=== PATIENT | female | born 2000 | race Caucasian/White ===

== ENCOUNTER 2022-10-10 11:04 | Outpatient (CLI) | payer MEDICAID, SELFPAY ==
--- NOTE | 2022-10-10 11:09 | MM_ITS ---
WS: [id number] SCREENING DIGITAL TOMOSYNTHESIS MAMMOGRAM WITH CAD HISTORY: SCREENING COMPARISON: None available. Bilateral CC and MLO with tomosynthesis views submitted. Synthetic mammography reviewed. Computer aid ed detection analyzed. Breast composition: There are scattered areas of fibroglandular density. No suspicious masses, microc alcifications or architectural distortion. MM/[place] [id number] IMPRESSION: BI-RADS: 1-Negative FOLLOW UP: 1 Year Follow-up
== END 2022-10-10 11:05 | disposition home or self-care (01) ==
PROVIDERS: PCP Family Medicine; Visit Provider Family Medicine
DX: Z12.31 Encounter for screening mammogram for malignant neoplasm of breast (principal)
CPT/HCPCS: 77063; 77067

== ENCOUNTER 2023-01-07 16:03 | Inpatient (IN) | payer MEDICAID, SELFPAY ==
[2023-01-07 16:04] VITALS: BP 183/102; PULSE 102; TEMP 37.2; O2SAT 96; BMI 37.5
--- NOTE | 2023-01-07 16:14 | ED.C_ITS ---
HPI - Psych General: Chief Complaint: Psychiatric Symptoms Stated Complaint: PSYCH EVAL Time Seen by Provider: 01/07/23 16:05 Source: patient Mode of arrival: ambulatory Limitations: no limitations History of Present Illness: 22-year-old female who is here with EMS. She has a history of bipolar she has not taken her meds since May family called police because patient's been extremely paranoid she thinks that someone is coming into her house and taking items and replacing with other items. She also thinks that people mid-peaking in her windows. Patient is extremely paranoid here with pressured speech and appears manic. Associated symptoms: Reports delusions and depression Review of Systems Const: Denies: fever(s), chills, body aches or change in appetite ENMT: Denies: throat pain or dental pain Card: Denies: chest pain Resp: Denies: dyspnea GI: Denies: abdominal pain, nausea, vomiting or diarrhea Musc: Denies: neck pain or back pain Skin/Breast: Denies: rash Psych: Reports: depression, sleeping less, irritability and paranoia Physical Exam Const: COMMON NORMALS: patient oriented x3 and healthy appearing GENERAL APPEARANCE: anxious HENMT: COMMON NORMALS: normocephalic and atraumatic HEAD & SCALP: normocephalic and atraumatic Eye: COMMON NORMALS: Equal, round and reactive pupils present and EOMs intact bilaterally PUPIL: Yes Equal, round and reactive pupils present Neck/C-Spine: COMMON NORMALS: full ROM and supple Chest: COMMONS NORMALS: normal inspection of the chest and normal palpation of entire chest wall Resp: COMMON NORMALS: normal respiratory effort, No retractions, No use of accessory muscles and clear to auscultation bilaterally AUSCULTATION: clear to auscultation bilaterally Cardio: COMMON NORMALS: regular rate, regular rhythm and No murmurs present (Cardio) RATE: regular rate RHYTHM: regular rhythm GI: COMMON NORMALS: Normal to inspection, nondistended, normoactive bowel sounds present, Soft to palpation, non-tender and no masses PALPATION: Yes Soft to palpation Extremity: COMMON NORMALS: normal to inspection and full ROM Neuro: COMMON NORMALS: patient oriented x3, moves all extremities and no focal motor deficits Psych: COMMON NORMALS: mental status grossly normal and cooperative; negative for Normal thought process present SPEECH: Yes excessive THOUGHT PROCESS: abnormal THOUGHT CONTENT: Yes delusions and Yes Hallucination(s) present Skin: COMMON NORMALS: no rashes or lesions noted and no wounds GENERAL SKIN EXAM: no rashes or lesions noted Course Vital Signs: Vital signs: Vital Signs Temperature 98.9 F 01/07/23 16:04 Pulse Rate 102 H 01/07/23 16:04 Blood Pressure 183/102 01/07/23 16:04 Pulse Oximetry 96 01/07/23 16:04 Oxygen Delivery Me thod Room Air 01/07/23 16:04 MDM - Psych Medical Decision Making Patient presents here with acute psychosis along with fransisco she is extremely paranoid here she is not safe on her own she is placed on a 96-hour hold I spoke to psychiatry she is medically cleared will admit at this time. Medical Records I reviewed the patient's medical records. Lab Data I reviewed the patient's lab results. 01/07/23 16:44 01/07/23 16:44 Laboratory Results WBC 6.84 10^3/uL (3.29-11.43) 01/07/23 16:44 RBC 5.48 10^6/uL (3.85-5.65) 01/07/23 16:44 Hgb 15.80 g/dL (11.27-16.99) 01/07/23 16:44 Hct 46.4 % (36-47) 01/07/23 16:44 MCV 84.7 fl (85-98) L 01/07/23 16:44 MCH 28.8 pg (27-33) 01/07/23 16:44 MCHC 34.1 g/dL (30-55) 01/07/23 16:44 RDW 12.4 % (12.1-15.1) 01/07/23 16:44 Plt Count 225 10^3/cmm (157-399) 01/07/23 16:44 MPV 11.3 fL (7.4-10.4) H 01/07/23 16:44 Neut % (Auto) 66.3 % 01/07/23 16:44 Lymph % (Auto) 21.6 % 01/07/23 16:44 Stevens % (Auto) 11.3 % 01/07/23 16:44 Eos % (Auto) 0.0 % 01/07/23 16:44 Baso % (Auto) 0.7 % 01/07/23 16:44 Neut # (Auto) 4.53 10^3/uL (1.8-7.7) 01/07/23 16:44 Lymph # (Auto) 1.5 10^3/uL (0.8-4.8) 01/07/23 16:44 Stevens # (Auto) 0.8 10^3/uL (0.2-0.9) 01/07/23 16:44 Eos # (Auto) 0.0 10^3/uL (0.0-0.8) 01/07/23 16:44 Baso # (Auto) 0.1 10^3/uL (0.0-0.1) 01/07/23 16:44 Nucleated RBC % (auto) 0 % 01/07/23 16:44 Nucleated RBCs # 0.0 /100WBC 01/07/23 16:44 No radiology studies performed this visit Discharge Plan Discharge Condition: Stable Referrals: Rell Ferrari MD [Primary Care Provider] - Coding Level of Care Code ED Painter Helper Spray for Guanako Blackburn
[2023-01-07 16:25] VITALS: BP 154/89
[2023-01-07 17:00] LABS: Basophils # 0.1 10^3/uL (0.0-0.1); Basophils % 0.7 %; Hematocrit 46.4 % (36-47); Lymphocytes # 1.5 10^3/uL (0.8-4.8); Lymphocytes % 21.6 %; Mean Corpuscular HGB Conc 34.1 g/dL (30-55); Mean Corpuscular Hemoglobin 28.8 pg (27-33); Mean Corpuscular Volume 84.7 fl (85-98); Mean Platelet Volume 11.3 fL (7.4-10.4); Monocytes # 0.8 10^3/uL (0.2-0.9); Monocytes % 11.3 %; Neutrophils # 4.53 10^3/uL (1.8-7.7); Neutrophils % 66.3 %; Nucleated Red Blood Cells % 0 %; Platelet Count 225 10^3/cmm (157-399); Red Blood Count 5.48 10^6/uL (3.85-5.65); Red Cell Distribution Width 12.4 % (12.1-15.1); White Blood Count 6.84 10^3/uL (3.29-11.43)
[2023-01-07 17:12] LABS: HCG, Serum Qual Negative (Negative)
[2023-01-07 17:13] LABS: Acetaminophen 9.6 ug/mL (10-30); Alanine Aminotransferase 14 U/L (0-33); Albumin Level 4.2 g/dL (3.5-5.2); Alkaline Phosphatase 87 U/L (35-105); Anion Gap 17.3 (5-19); Aspartate Amino Transferase 18 U/L (0-32); Blood Urea Nitrogen 5 mg/dL (6-20); Calcium 8.9 mg/dL (8.5-10.5); Carbon Dioxide 22 mmol/L (22-29); Chloride 106 mmol/L (98-107); Globulin 3.2 g/dL (1.3-4.6); Glomerular Filtration Rate 122.8 mL/min (90-130); Glucose 110 mg/dL (65-115); Osmolality Calculated 292 mOsm/kg (285-295); Potassium 3.3 mmol/L (3.5-5.1); Sodium 142 mmol/L (136-145); Total Bilirubin 0.3 mg/dL (0.15-1.2); Total Protein 7.4 g/dL (6.6-8.7)
[2023-01-07 17:16] LABS: Alcohol Level < 10 mg/dL (0-10); Salicylate < 0.3 mg/dL (3-10)
[2023-01-07 17:17] LABS: Amphetamines Screen Urine Negative (Negative); Barbiturates Screen Urine Negative (Negative); Benzodiazepines Screen Urine Negative (Negative); Cocaine Screen Urine Negative (Negative); Opiate Screen Urine Negative (Negative); PCP Screen Urine Negative (Negative); THC Screen Urine Negative (Negative)
[2023-01-07 18:00] VITALS: BP 153/97; PULSE 90; RESP 17; TEMP 37.2; O2SAT 99
[2023-01-07] MEDS: acetaminophen 325 mg Tablet 650 MG PO (19:44)
[2023-01-07 20:09] VITALS: BP 164/103; PULSE 91; RESP 12; TEMP 37.7; O2SAT 97
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
[2023-01-08 06:00] VITALS: BP 156/94; PULSE 102; RESP 20; TEMP 36.6; O2SAT 98
--- NOTE | 2023-01-08 07:28 | PC.NURSE ---
During morning assessment, patient denied all. Patient stated that she has not had a BM in a few days because she hasn't eaten in a few days. She stated that she hasn't eated in three days because she has been too stressed to do so. Patient also said that she hasn't slept in three days. Patient staring out of the [place] doors during assessment, stated that she saw a little baby over there and that made her sad.
--- NOTE | 2023-01-08 08:50 | PC.NURSE ---
When pt was given acetaminophen at 0843 that she requested for a headache. pt only took one 325mg tablet and refused to take the other. this nurse educated pt that the dose ordered is 2 tablets and pt stated thank you. and walked away.
[2023-01-08] MEDS: acetaminophen 325 mg Tablet PO (08:57)
--- NOTE | 2023-01-08 09:43 | PC.OT ---
Order received to evaluate for OT groups. Per nursing, patient is not appropriate for an evaluation at this time.
--- NOTE | 2023-01-08 12:32 | PC.NURSE ---
Patient at window, patient states that she wants to be discharged because she doesn't feel safe here. This nurse asked patient if it was something we are doing that makes her feel unsafe. Patient said yes, but refused to go into detail. Patient started crying, asked for a cup of water. Patient at window, tearful. Patient refusing medication.
[2023-01-08 13:02] VITALS: BP 151/100; PULSE 105; RESP 18; TEMP 36.4; O2SAT 97
--- NOTE | 2023-01-08 13:36 | P.NPUHP_ITS ---
Providers/Chief Complaint Admitting Physician: Migue Brady MD Primary Care Provider: Rell Ferrari MD Chief Complaint: PSYCH EVAL HPI NPU History of Present Illness Shawna Godfrey is a 22 year old [facility]: Chief Complaint: Psychiatric Symptoms Stated Complaint: PSYCH EVAL Time Seen by Provider: 01/07/23 16:05 Source: patient Mode of arrival: ambulatory Limitations: no limitations History of Present Illness: 22-year-old female who is here with EMS. She has a history of bipolar she has not taken her meds since May family called police because patient's been extremely paranoid she thinks that someone is coming into her house and taking items and replacing with other items. She also thinks that people mid-peaking in her windows. Patient is extremely paranoid here with pressured speech and appears manic. Associated symptoms: Reports delusions and depression. She was admitted to the neuropsychiatric unit for definitive treatment of those issues. She presented today quite distraught. I offered to take her out on the patio for privacy and that led to almost panic as she was not willing to walk out the door. She asked why I was trying to get her on the helicopter and when I asked what was meant by that she was frustrated that I was denying that there was a helicopter. I explained to her that certainly helicopters come to and from the hospital on a regular basis but there were no helicopters in the near facility but she was not hearing that. She was very upset as she argued that she had not had vitals in the last 2 hours and needed to be taken down to the emergency department but could not articulate what the actual issue was. She said that she has a fever and her blood pressure is elevated which is not true and she had just had vitals in the last couple hours which she argued against. Her mother had come for visitation and she refused to see her mother but after our interaction she seemed like she might give her mother an option to see her. We discussed the risks, benefits and alternatives of exploring an antipsychotic and she appeared to understand but would not agree to either discussed medication she had been on or considering a medication today. We discussed the fact she is on a 96-hour hold and hoping we can work together to initiate medication to avoid that hold needing to be extended given her request to get out of here. She would not provide any additional information and we discussed us reaching out to the family to get collateral information. Meds NPU Home Medications Medication Instructions Recorded Confirmed Last Taken Type No Known Home Medications 01/07/23 01/07/23 Unknown History Allergies Allergy/AdvReac Type Severity Reaction Status Date / Time No Known Allergies Allergy Verified 01/07/23 20:23 Mental Status Exam MSE Comments: This is an obese versus morbidly obese white female in hospital scrubs with limited grooming and eye contact. No abnormal movements except for psychomotor agitation. Mostly uncooperative with exam and moderate distress. Speech was slightly increased rate and volume. Mood not described, affect anxious. Thought process linear at times but at times disorganized and greatly influenced by her hallucinations. Thought content: Patient did not report any suicidal or homicidal ideation but did not answer the question, there were no delusions reported but clear paranoid and persecutory delusions noted, she did not report any auditory or visual hallucinations but was clearly attending to internal stimuli and projecting that into the environment. Attention and concentration were impaired and memory was unreliable but none were formally tested. She is alert and oriented times person and place. Insight, judgment and impulse control are impaired. Vitals/I&O/Wt Last Vital Signs Temp 97.6 F 01/08/23 13:02 Pulse 105 H 01/08/23 13:02 Resp 18 01/08/23 13:02 BP 151/100 01/08/23 13:02 Pulse Ox 97 01/08/23 13:02 O2 Del Method Room Air 01/07/23 20:09 Weight last 48 hrs Weight 108.862 kg Data NPU 01/07/23 16:44 01/07/23 16:44 A&P Assessment and plan (1) Psychosis: (2) Hallucinations: (3) History of bipolar disorder: Plan This is a 22-year-old white female with some previous mental health history repo rted including possible bipolar disorder but presenting frankly psychotic with a negative UDS. 1. Lateral information to identify if there is any previous antipsychotic ex posure. 2. Get collateral information given patient very poor historian. 3. Consider Abilify versus Invega given ability to go to a long-acting injectable 4. Encourage individual, group, and milieu therapy. 5. Continue q-15-minute checks for safety. 6. Recommend sober living treatment at the highest level of care to which the patient is willing to commit as we explore whether there is any occult drug use.. Involuntary Hold Information 96 Hour Hold: 96 Hour Involuntary Admission: Yes 96 Hour Hold Ending Date: 01/12/23 96 Hour Hold Ending Time: 00:01 Attestations NPU Medical Necessity Statement*: Inpatient hospitalization is medically necessary and the clinically appropriate intervention, at this time. We will monitor medications and make changes as indicated. Patient will be in the hospital for over two midnights. Likely length of stay is 7-10 days. Coding Level of Care Code Acute Code for Chg Fwd Diagnoses Psychosis F29 Hallucinations R44.3 History of bipolar disorder Z86.59
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
[2023-01-08 19:59] VITALS: BP 148/102; PULSE 80; RESP 18; TEMP 36.7; O2SAT 98
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
[2023-01-08] MEDS: neomycin-poly-bacitracin oint 28 gm 1 APPLIC TOPICAL (23:15)
--- NOTE | 2023-01-08 23:16 | PC.NURSE ---
PT UP TO NURSES STATION STATING I NEED TO WASH MY FEET AND GET TRIPLE ANTIBIOTIC CREAM FOR MY FEET ITS THE ONLY THING THAT HELPS WITH THE BRUISING. NEW ORDERS RECEIVED FOR TRIPLE ANTIBIOTIC OINTMENT TOPICAL TO AFFECTED AREAS BID PRN. PT WAS EDUCATED THAT SHE CAN USE A SMALL AMOUNT TO HER FEET. PT CONTINUES TO BE DELUSIONAL AND ARGUMENTATIVE. PT THEN STATES I NEED TO TALK TO THE NOW SO I CAN GET THE MORNING AFTER PILL AND GET TESTED FOR STD'S. PT WAS INFORMED SHE CAN SPEAK TO DR. PARRA ABOUT THAT IN THE AM, THAT IT WAS 1119 PM AND HE WOULD HAVE TO PUT THOSE ORDERS IN. PT WAS ASKED WHY SHE IS WORRYING ABOUT STD TESTING AND THE MORNING AFTER PILL THIS LATE AT NIGHT. PT STATES I'M JUST TRYING TO RELAX. I KNOW MANISHA IS BACK THERE AND YOU ALL ARE JUST LYING TO ME ABOUT HIM NOT BEING THERE. PT WAS EDUCATED THAT THERE ARE NO MALES BEHIND THE NURSES STATION AT THIS TIME. PT IS VERY SOMATIC STATING SHE NEEDS TO BE ON ANTIBIOTICS TONIGHT BECAUSE SHE HAS SMALL CUTS ON HER FINGERS. NO CUTS WERE OBSERVED TO BE ON THE PATIENTS FINGERS AT THIS TIME. PT WAS ENCOURAGED TO SIT ON BENCH AND TO TRY AND RELAX BY DOING DEEP BREATHING EXERCISES. PT DID SIT ON THE BENCH BRIEFLY THEN CAME UP AND GOT THE REST OF HER ANTIBIOTIC CREAM AND PUT IT ON MY CUTS ON MY FINGERS. PT THEN WALKED AWAY FROM THE DESK.
--- NOTE | 2023-01-08 23:39 | PC.NURSE ---
NEW ORDERS RECEIVED FROM DR. PARRA: ROOM CLOSED. ORDERS PLACED. PT IN NEED OF CLOSED ROOM DUE TO INCREASED PARANOIA STATING PEOPLE ARE TAMPERING WITH MY ROOM AND MY SHOWER. PT CONTINUES TO HAVE MULTIPLE DELUSIONS AND IS SEEING PEOPLE COME IN MY ROOM ALL THE TIME AND NOW I CAN'T SLEEP. THERE HAS NOT BEEN ANYONE ENTER PTS ROOM EXCEPT THIS RN ONE TIME AND GENETIC TECHNOLOGIST TWICE EARLIER IN THE SHIFT.
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
[2023-01-09] MEDS: diphenhydrAMINE 50 mg/mL SDV 1mL IM (00:15)
[2023-01-09] MEDS: haloperidol inj 5 mg/mL INJ 1 mL IM (00:15)
[2023-01-09] MEDS: LORazepam 2 mg/mL INJ 1 mL IM (00:15)
--- NOTE | 2023-01-09 00:41 | PC.NURSE ---
AT MIDNIGHT PT CONTINUED TO SIT ON BENCH SPEAKING TO STAFF. PT THEN BECAME AGITATED DUE TO STAFF NOT CALLING 911 AND GETTING MY AN IV. I NEED AN IV. PT WAS INFORMED THAT SHE HAS BEEN MEDICALLY CLEARED AND DOES NOT NEED AN IV. PT STARTED TOWARD THE DOOR AND WOULD NOT LEAVE THE DOOR, STATING CALL THE EMS I NEED TO LEAVE LET ME OUT. PT BECAME AGITATED AND LOUD, AWAKING OTHER PTS. PT WAS GIVEN THE CHOICE TO TAKE MEDICATIONS TO CALM DOWN OR GO TO HER ROOM FOR QUIET TIME. PT REFUSED BOTH OPTIONS. PT BECAME LOUDER AND INSISTENT THAT I AM LEAVING. PT BEGAN TO MAKE THREATS TOWARDS STAFF WHEN STAFF WAS NOTIFIED TO CALL SECURITY AND BLACKSMITH HAMMER OPERATOR. SECURITY AND HOUSE SUP ARRIVED AT APPROXIMATELY 0010 SO RN COULD GIVE INJECTION TO PT. STAFF CONTINUED TO OFFER CHOICES FOR PT BUT PT CONTINUES TO STATE SHE WANTS TO LEAVE AND DEMANDS 911 BE CALLED SO SHE CAN GET AN IV. PT IS TEARFUL AT TIMES THEN SHE GET AGITATED AT STAFF FOR NOT CALLING THE AMBULANCE. PT CONTINUES TO STAND BY DOOR AND NOT LEAVE THE DOOR WHILE CONTINUING TO AWAKEN PTS. AT 0015 ORDERS WERE PLACED FOR MANUAL HOLD TO BILATERAL WRISTS. PT DID STATE YOU DON'T NEED TO HOLD ME I'M LETTING YOU DO IT. SECURITY AND CABLE WAY OPERATOR REMAINED ON GUARD AND DID APPLY LIGHT PRESSURE TO BILATERAL WRISTS. ATIVAN 2 MG AND HALDOL 5 MG WAS GIVEN IM TO LEFT DELTOID BY TUBER HELPER, BENADRYL 50 MG IM TO RIGHT DELTOID WAS GIVEN BY THIS RN. MANUAL HOLD WAS DISCONTINUED AT 0016. DR. PARRA WAS NOTIFIED VIA PHONE AT 0027. FACE TO FACE WAS COMPLETED BY THIS RN. PT CONTINUES TO REFUSE TO GO TO ROOM. THIS RN INFORMED PT SHE COULD STAY ON THE BENCH UNTIL SHE FELT SLEEPY THEN STAFF WOULD ASSIST HER TO BED. PT CONTINUES TO SIT ON THE BENCH AND MAKE DEROGATORY COMMENTS TO STAFF. STATES NONE OF YOU ARE EVEN REAL. PT WAS ASKED IF SHE WOULD LIKE IF HER MOTHER OR FAMILY BE NOTIFIED. PT STATED HELL NO DON'T CALL MY MOTHER THAT'S STUPID. PT WAS ASSURED THAT NO FAMILY MEMBERS WOULD BE NOTIFIED. ALL QUESTIONS ANSWERED AND SUPPORT WAS VOICED.
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
--- NOTE | 2023-01-09 02:32 | PC.NURSE ---
PT CONTINUES TO REST WITH EYES CLOSED. STAFF CONTINUES TO COMPLETE 15 MINUTES CHECKS. MEDICATIONS (ATIVAN 2MG, HALDOL 5 MG AND BENADRYL 50 MG) DEEMED EFFECTIVE.
--- NOTE | 2023-01-09 06:19 | PC.NURSE ---
INDUSTRIAL ECOLOGIST'S INSTRUCTED NOT TO GET 600 AM VITAL SIGNS DUE TO PT FINALLY RESTING. PT HAS NOT SLEPT IN FOUR DAYS. NURSING JUDGMENT MADE TO ALLOW PT TO REST TO POSSIBLY DECREASE PTS PSYCHOSIS.
--- NOTE | 2023-01-09 12:56 | P.NPUPN_ITS ---
Subjective NPU Subjective: Patient presented today quite a bit different than she did yesterday. Primarily secondary to receiving as needed medication to help her calm down. She received her medication early this morning and is still having some lethargy from that. She was cogent enough to converse about the risks, benefits and alternatives of Abilify and we also reached out to her mother about this issue and she understood and agreed to proceed as is documented in this note. We discussed being hopeful that she could be adherent with this medication so that we can see if it is helpful as mom reports she had not been taking it though it had been prescribed. Mental Status Exam MSE Comments: This is an obese versus morbidly obese white female in hospital scrubs with limited grooming and eye contact. No abnormal movements except for psychomotor retardation. Mostly uncooperative with exam in mild to moderate distress. Speech was limited with decreased rate and volume. Mood not described, affect anxious. Thought process linear at times. Thought content: Patient did not report any suicidal or homicidal ideation, there were no delusions reported or noted, she did not report any auditory or visual hallucination. Attention and concentration were limited and memory was unreliable but none were formally tested. She is alert and oriented times person and place. Insight, judgment and impulse control are impaired. Vitals/I&O/Wt Last Vital Signs Temp 98.1 F 01/08/23 19:59 Pulse 80 01/08/23 19:59 Resp 18 01/08/23 19:59 BP 148/102 01/08/23 19:59 Pulse Ox 98 01/08/23 19:59 O2 Del Method Room Air 01/08/23 19:59 Weight last 48 hrs Weight 108.862 kg Data NPU 01/07/23 16:44 01/07/23 16:44 A&P Assessment and plan (1) Psychosis: (2) Hallucinations: (3) History of bipolar disorder: Plan This is a 22-year-old white female with some previous mental health history reported including possible bipolar disorder but presenting frankly psychotic with a negative UDS. 1. Reports of previous exposure to Abilify but with significant nonadherence. 2. Get collateral information given patient very poor historian. 3. Consider Abilify versus Invega given ability to go to a long-acting injectable. Restart Abilify 10 mg p.o. nightly. 4. Encourage individual, group, and milieu therapy. 5. Continue q-15-minute checks for safety. 6. Recommend sober living treatment at the highest level of care to which the patient is willing to commit as we explore whether there is any occult drug use .. Involuntary Hold Information 96 Hour Hold: 96 Hour Involuntary Admission: Yes 96 Hour Hold Ending Date: 01/12/23 96 Hour Hold Ending Time: 00:01 Attestations NPU Medical Necessity Statement*: Inpatient hospitalization is medically necessary and the clinically appropriate intervention, at this time. We will monitor medications and make changes as indicated. Likely length of stay is 7-10 days. Coding Level of Care Code Acute Code for [facility] Fwd Diagnoses Psychosis F29 Hallucinations R44.3 History of bipolar disorder Z86.59
--- NOTE | 2023-01-09 13:07 | PC.NURSE ---
pt came an handed this nurse her allergy bracelet. This nurse requested that she put it back and educated pt that it was an allergy band to help with identificationa nd safety purposes. The pt is currently refusing to have this bracelet on at this time.
[2023-01-09 14:00] VITALS: BP 136/79; PULSE 76; RESP 15; TEMP 36.6; O2SAT 100
[2023-01-09] MEDS: neomycin-poly-bacitracin oint 28 gm 1 APPLIC TOPICAL (18:11)
[2023-01-09] MEDS: ARIPiprazole 10 mg Tablet PO (20:09)
[2023-01-09 20:36] VITALS: BP 134/84; PULSE 132; RESP 18; O2SAT 99
[2023-01-09 22:09] VITALS: PULSE 95
[2023-01-10 06:00] VITALS: BP 130/77; PULSE 117; RESP 18; TEMP 36.7; O2SAT 97
--- NOTE | 2023-01-10 09:43 | W.PM.NPUPNS ---
Subjective NPU Subjective: Patient presented today reporting that she is clear if Abilify is the best medication. She has been very resistant to taking the medication and has not been eating much with significant reports of paranoia and feeling like people are to be trusted with food and medicine etc. she even at 1 point was unclear whether her mother to be trusted even though she was the one suggesting to engage her mother to get a better understanding of her medication history. At this point she is adherent to the medication but is not feeling positive about it. Mental Status Exam MSE Comments: This is an obese versus morbidly obese white female in hospital scrubs with limited grooming and eye contact. No abnormal movements except for psychomotor retardation. Mostly uncooperative with exam in mild to moderate distress. Speech was limited with decreased rate and volume. Mood not described, affect anxious. Thought process linear at times. Thought content: Patient did not report any suicidal or homicidal ideation, there were no delusions reported or noted, she did not report any auditory or visual hallucination. Attention and concentration were limited and memory was unreliable but none were formally tested. She is alert and oriented times person and place. Insight, judgment and impulse control are impaired. Vitals/I&O/Wt Last Vital Signs Temp 98.0 F 01/10/23 06:00 Pulse 117 H 01/10/23 06:00 Resp 18 01/10/23 06:00 BP 130/77 01/10/23 06:00 Pulse Ox 97 01/10/23 06:00 O2 Del Method Room Air 01/08/23 19:59 Data NPU 01/07/23 16:44 01/07/23 16:44 A&P Assessment and plan (1) Psychosis: (2) Hallucinations: (3) History of bipolar disorder: Plan This is a 22-year-old white female with some previous mental health history reported including possible bipolar disorder but presenting frankly psychotic with a negative UDS. 1. Reports of previous exposure to Abilify but with significant nonadherence. 2. Get collateral information given patient very poor historian. 3. Consider Abilify versus Invega given ability to go to a long-acting injectable. Restarted Abilify 10 mg p.o. nightly. 4. Encourage individual, group, and milieu therapy. 5. Continue q-15-minute checks for safety. 6. Recommend sober living treatment at the highest level of care to which the patient is willing to commit as we explore whether there is any occult drug use. Involuntary Hold Information 96 Hour Hold: 96 Hour Involuntary Admission: Yes 96 Hour Hold Ending Date: 01/12/23 96 Hour Hold Ending Time: 00:01 Attestations NPU Medical Necessity Statement*: Inpatient hospitalization is medically necessary and the clinically appropriate intervention, at this time. We will monitor medications and make changes as indicated. Likely length of stay is 7-10 days. Coding Level of Care Code Acute Code for Chg Fwd Diagnoses Psychosis F29 Hallucinations R44.3 History of bipolar disorder Z86.59
[2023-01-10 13:24] VITALS: BP 138/99; PULSE 92; RESP 17; TEMP 36.6; O2SAT 98
--- NOTE | 2023-01-10 13:35 | PC.NURSE ---
ATTEMPTED TO PLACE AN ALLERGY BAND AGAIN ON THIS. THIS PT IS CURRENTLY REFUSING TO WEAR THIS BAND.
--- NOTE | 2023-01-10 18:22 | PC.NURSE ---
WITNESSED PT WILLINGLY EATING PREPACKAGED FOOD ITEMS. THIS NURSE CONTACTED PHYSICIAN ABOUT ADDING A DIET MODIFICATION TO ENCOURAGE EATING DURING MEAL TIMES DUE TO PT SEVERE PARANOIA. PHYSICIAN AGREED AND DIET ORDER HAS BEEN UPDATED.
[2023-01-10] MEDS: neomycin-poly-bacitracin oint 28 gm 1 APPLIC TOPICAL (18:46)
[2023-01-10 20:19] VITALS: BP 132/84; PULSE 98; RESP 18; TEMP 36.8; O2SAT 98
--- NOTE | 2023-01-10 20:24 | PC.NURSE ---
ASSESSMENT COMPLETED IN DAY ROOM. PT DENIES SI/HI AND AVH AT THIS TIME. PT STATES MY FEET HURT PT WAS OFFERED TYLENOL OR IBUPROFEN. PT IMMEDIATELY STATED NO I DON'T TAKE MEDS. PT WAS INFORMED IF SHE CHANGES HER MIND TO LET THIS RN KNOW. PT WAS INSTRUCTED TO RATE HER PAIN, PT JUST STARRED AT RN AND WOULD NOT RATE PAIN. FLACC SCALE COMPLETED AND IS RATED 0-2 PER FLACC SCALE. PT WAS INSTRUCTED TO COME TAKE HER NIGHT TIME MEDICATION. PT AGAIN STARRED AT STAFF AND DID NOT MOVE. SUPPORT WAS VOICED.
[2023-01-10] MEDS: ARIPiprazole 10 mg Tablet PO (20:28)
--- NOTE | 2023-01-10 20:34 | PC.NURSE ---
IN BED RESTING ASSESSMENT COMPLETED. PT DENIES REPORTS BACK 08/30. TYLENOL OFFERED AND PT STATES I WILL COME GET IT. PT CONTINUES TO ENDORSE SUICIDAL IDEATIONS STATING I STILL WANT TO HANG MYSELF, I'M NOT GONNA DO IT WHY I'M HERE BUT WHEN I LEAVE I STILL FEEL I MAY HURT MYSELF. PT DENIES HI AND AVH AT THIS TIME. PT STATES I NEED SOMETHING TO HELP ME SLEEP AND HALDOL FOR MY ANXIETY. PT WAS INFORMED THAT I WOULD PULL HIS MEDICATIONS SHORTLY TO COME UP TO THE NURSES STATION. ALL QUESTIONS ANSWERED AND SUPPORT VOICED.
--- NOTE | 2023-01-10 21:12 | PC.NURSE ---
Addendum entered and electronically signed by Chelsea Dorado RN 01/10/23 21:48: NO NEW ORDERS RECEIVED AT THIS TIME. Original Note: PT ACTED LIKE SHE TOOK HER ABILIFY. WHEN RN LOOKED IN THE CUP IT APPEARED THAT THE MEDICATION WAS CHEWED UP AND SPIT INTO THE WATER CUP. DR. PARRA WAS NOTIFIED VIA PHONE.
[2023-01-11 06:00] VITALS: RESP 16
--- NOTE | 2023-01-11 06:39 | PC.NURSE ---
Unable to obtain vitals. Unable to wake patient up due to deeply sleeping.
--- NOTE | 2023-01-11 07:55 | PC.NURSE ---
Patient sitting up in bed for assessment. Denies avh and si/hi. When asked if she was in any pain she stated, ya, my vagina and my feet. This RN then asked if this was normal for her and she replied, I have an std and my feet are bruised. This RN then inquired further if she had been walking a lot or without shoes and the patient said, no. They got bruised when I laid down on this bed the first time. No bruises were observed on the patient's feet. Will contact doctor for orders for an std screening.
[2023-01-11] MEDS: loperamide 2 mg Capsule PO (08:02)
--- NOTE | 2023-01-11 11:02 | P.NPUPN_ITS ---
Subjective NPU Subjective: Patient presented today reporting that she is fine. She continued to demonstrate clear thought blocking and psychosis. She at 1 point ended the session early and just walked out of the room without comment. She could not explain why she was refusing medication. We discussed the 21-day hold paperwork being filed and the possibility of forced medication. Mental Status Exam MSE Comments: This is an obese versus morbidly obese white female in hospital scrubs with limited grooming and eye contact. No abnormal movements except for psychomotor retardation. Mostly uncooperative with exam in mild to moderate distress. Speech was limited with decreased rate and volume. Mood not described, affect anxious. Thought process linear at times. Thought content: Patient did not report any suicidal or homicidal ideation, there were no delusions reported or noted, she did not report any auditory or visual hallucination. Attention and concentration were limited and memory was unreliable but none were formally tested. She is alert and oriented times person and place. Insight, judgment and impulse control are impaired. Vitals/I&O/Wt Last Vital Signs Temp 98.2 F 01/10/23 20:19 Pulse 98 01/10/23 20:19 Resp 16 01/11/23 06:00 BP 132/84 01/10/23 20:19 Pulse Ox 98 01/10/23 20:19 O2 Del Method Room Air 01/10/23 20:19 Data NPU 01/07/23 16:44 01/07/23 16:44 A&P Assessment and plan (1) Psychosis: (2) Hallucinations: (3) History of bipolar disorder: Plan This is a 22-year-old white female with some previous mental health history reported including possible bipolar disorder but presenting frankly psychotic with a negative UDS. 1. Reports of previous exposure to Abilify but with significant nonadherence. 2. Get collateral information given patient very poor historian. 3. Consider Abilify versus Invega given ability to go to a long-acting injectable. Restarted Abilify 10 mg p.o. nightly. Patient refusing medication. We will likely have to wait for forced medication. 4. Encourage individual, group, and milieu therapy. 5. Continue q-15-minute checks for safety. 6. Recommend sober living treatment at the highest level of care to which the patient is willing to commit as we explore whether there is any occult drug use. 7. 21-day hold paperwork filed. Involuntary Hold Information 96 Hour Hold: 96 Hour Involuntary Admission: Yes 96 Hour Hold Ending Date: 01/12/23 96 Hour Hold Ending Time: 00:01 Attestations NPU Medical Necessity Statement*: Inpatient hospitalization is medically necessary and the clinically appropriate intervention, at this time. We will monitor medications and make changes as indicated. Likely length of stay is 7-10 days. Coding Level of Care Code Acute Code for [facility] Fwd Diagnoses Psychosis F29 Hallucinations R44.3 History of bipolar disorder Z86.59
[2023-01-11 14:00] VITALS: BP 137/86; PULSE 70; RESP 18; TEMP 37; O2SAT 99
[2023-01-11 20:10] VITALS: BP 130/85; PULSE 100; RESP 16; TEMP 37.2; O2SAT 95
--- NOTE | 2023-01-11 20:28 | PC.NURSE ---
SITTING ON BENCH. PT STATES MY VAGINA HURTS. PT WAS INFORMED THAT HER STD TESTING HAS BEEN DONE THIS AM AND THE RESULTS ARE PENDING. PT DENIES ANY DISCHARGE OR ODOR. PT DENIES SI/HI AND AVH AT THIS TIME. PT IS EVASIVE WITH ANSWERING QUESTIONS. PT WAS ENCOURAGED TO COME TO TAKE MEDS, PT STATES 'I WILL WAIT. PT WAS EDUCATED THAT SHE NEEDS TO TAKE HER MEDICATIONS TO GET BETTER. PT REFUSED HER TRAY AT DINNER TIME. WAS INFORMED THAT SHE COULD GET IT ANYTIME IF SHE WAS HUNGRY. PT CONTINUES TO BE PARANOID THOUGH SHE DENIES IT. SUPPORT VOICED.
--- NOTE | 2023-01-11 20:53 | PC.NURSE ---
PT WAS ENCOURAGED TO TAKE HER NIGHT TIME DOSE OF ABILIFY SEVERAL TIMES THIS SHIFT. PT STATES I AM NOT TAKING IT SO STOP ASKING ME TO. I DON'T HAVE TO AND I'M NOT. PT WAS EDUCATED ON THE IMPORTANCE OF MEDICATION MANAGEMENT IN REGARDS TO HER DIAGNOSIS. PT STATED I DON'T REALLY CARE, I FEEL FINE. SUPPORT WAS VOICED. DR. PARRA WAS NOTIFIED VIA TELEPHONE NO NEW ORDERS WERE RECEIVED AT THIS TIME.
[2023-01-12 06:00] VITALS: RESP 16
--- NOTE | 2023-01-12 06:53 | PC.NURSE ---
Unable to obtain vitals due to patient deeply sleeping
--- NOTE | 2023-01-12 12:46 | PC.NURSE ---
OFF UNIT FOR [address]
[2023-01-12 14:00] VITALS: BP 132/92; PULSE 111; RESP 18; TEMP 37.6; O2SAT 98
--- NOTE | 2023-01-12 14:56 | W.PM.NPUPNS ---
Subjective NPU Subjective: Patient presented today reporting that she is fine and does not need to be in the hospital. She did not eat more than a bite yesterday and did not eat breakfast today. We discussed having the hearing today and that if she was kept on a hold that we would start the Abilify Maintena injection after the court. She denies any problems and reports she does not need the medications. In court she continued paranoid delusional content saying her family was poisoning her and that there was nothing wrong with her. Mental Status Exam MSE Comments: This is an obese versus morbidly obese white female in hospital scrubs with limited grooming and eye contact. No abnormal movements except for psychomotor retardation. Mostly uncooperative with exam in mild to moderate distress. Speech was limited with decreased rate and volume. Mood not described, affect anxious. Thought process linear at times. Thought content: Patient did not report any suicidal or homicidal ideation, there were no delusions reported or noted, she did not report any auditory or visual hallucination. Attention and concentration were limited and memory was unreliable but none were formally tested. She is alert and oriented times person and place. Insight, judgment and impulse control are impaired. Vitals/I&O/Wt Last Vital Signs Temp 99.7 F H 01/12/23 14:00 Pulse 111 H 01/12/23 14:00 Resp 18 01/12/23 14:00 BP 132/92 01/12/23 14:00 Pulse Ox 98 01/12/23 14:00 O2 Del Method Room Air 01/12/23 14:00 Data NPU 01/07/23 16:44 01/07/23 16:44 A&P Assessment and plan (1) Psychosis: (2) Hallucinations: (3) History of bipolar disorder: Plan This is a 22-year-old white female with some previous mental health history reported including possible bipolar disorder but presenting frankly psychotic with a negative UDS. 1. Reports of previous exposure to Abilify but with significant nonadherence. 2. Get collateral information given patient very poor historian. 3. Consider Abilify versus Invega given ability to go to a long-acting injectable. Restarted Abilify 10 mg p.o. nightly. Patient continuing to refuse medication. We will likely have to wait for forced medication. Abilify Maintena 400 [address] IM given after court hearing 01/12/2023. 4. Encourage individual, group, and milieu therapy. 5. Continue q-15-minute checks for safety. 6. Recommend sober living treatment at the highest level of care to which the patient is willing to commit as we explore whether there is any occult drug use. 7. 21 day hold hearing today and she was placed on a 21-day hold 01/12/2023. Involuntary Hold Information 96 Hour Hold: 96 Hour Involuntary Admission: Yes 96 Hour Hold Ending Date: 01/12/23 96 Hour Hold Ending Time: 00:01 Attestations NPU Medical Necessity Statement*: Inpatient hospitalization is medically necessary and the clinically appropriate intervention, at this time. We will monitor medications and make changes as indicated. Likely length of stay is 7-10 days. Coding Level of Care Code Acute Code for Chg Fwd Diagnoses Psychosis F29 Hallucinations R44.3 History of bipolar disorder Z86.59
--- NOTE | 2023-01-12 17:15 | PC.NURSE ---
rosaline maintena 400 mg given IM in right deltoid per physician order. tolerated injection well but tearful. will cont to monitor injection site for any redness, swelling, or irritation
[2023-01-12] MEDS: ARIPiprazole Maintena 400 MG IM (17:28)
[2023-01-12 18:24] LABS: Chlamydia Trachomatis RNA TMA DETECTED (NOT DETECTED); Neisseria Gonorrhoeae RNA, TMA NOT DETECTED (NOT DETECTED)
[2023-01-12 19:51] VITALS: BP 121/67; PULSE 97; RESP 18; TEMP 37.1; O2SAT 98
--- NOTE | 2023-01-12 19:57 | PC.NURSE ---
Pt mother called for update on pt, regarding her hearing today. Pt's mother updated on status, and thankful for up date.
[2023-01-13 06:00] VITALS: BP 130/82; PULSE 113; RESP 20; TEMP 37; O2SAT 100
--- NOTE | 2023-01-13 09:40 | PC.NURSE ---
Resting in bed. During morning assessment, patient denied SI, HI, AVH, depression, and anxiety. Patient requested that we remove her mother and brother from her call list and add some people,. Patient reports having enought to drink and eat. Cup present on her bedside table. Patient stated that she had been sleeping when this nurse went to room for assessment.
[2023-01-13 13:19] VITALS: BP 134/83; PULSE 104; RESP 19; TEMP 36.9; O2SAT 98
[2023-01-13] MEDS: azithromycin 250 mg Tablet 1000 MG PO (18:12)
--- NOTE | 2023-01-13 19:34 | P.NPUPN_ITS ---
Subjective NPU Subjective: The patient is a 22-year-old white female admitted with manic symptoms including active psychosis and paranoia with a history of noncompliance with her medications. She continued to appear upset stating that she had no idea why she was here in the hospital. She had been unable to elaborate regarding the details of her hospitalization but stated that she had been gas lit and that she had been convinced that none of her physical objects in her home had been replaced by others. She had denied having refrained from eating and stated that she did eat something here. She continued to report feeling frustrated that her family was somehow the cause of her being here in the hospital. She had reported adequate sleep. She continued to appear quite guarded on the milieu. She had reported that people are standing in the way of getting her out of this hospital. Mental Status Exam MSE Comments: This is an obese versus morbidly obese white female in hospital scrubs with limited grooming and eye contact. No abnormal movements except for psychomotor retardation. She was uncooperative with exam in signficant distress. Speech was productive with normal rate and normal volume. Mood described as fine. Affect was mood congruent and irritable. Thought process was superficial and linear. Thought content: Patient did not report any suicidal or homicidal ideation, there were no delusions reported or noted, she did not report any auditory or visual hallucination. There was some element of paranoia that was noted. His attention and concentration were limited and memory was unreliable but none were formally tested. She is alert and oriented times person and place. Insight, judgment and impulse control are impaired. Vitals/I&O/Wt Last Vital Signs Temp 98.5 F 01/13/23 13:19 Pulse 104 H 01/13/23 13:19 Resp 19 H 01/13/23 13:19 BP 134/83 01/13/23 13:19 Pulse Ox 98 01/13/23 13:19 O2 Del Method Room Air 01/13/23 06:00 Data NPU 01/07/23 16:44 01/07/23 16:44 A&P Assessment and plan (1) Psychosis: (2) Hallucinations: (3) History of bipolar disorder: Plan This is a 22-year-old white female with some previous mental health history reported including possible bipolar disorder but presenting frankly psychotic with a negative UDS. 1. Reports of previous exposure to Abilify but with significant nonadherence. 2. Get collateral information given patient very poor historian. 3. Continue Abilify 10mg at night. Abilify Maintena 400 [address] IM given after court hearing 01/12/2023. 4. Encourage individual, group, and milieu therapy. 5. Continue q-15-minute checks for safety. 6. Recommend sober living treatment at the highest level of care to which the patient is willing to commit as we explore whether there is any occult drug use. 7. 21 day hold hearing today and she was placed on a 21-day hold 01/12/2023. Involuntary Hold Information 96 Hour Hold: 96 Hour Involuntary Admission: Yes 96 Hour Hold Ending Date: 01/12/23 96 Hour Hold Ending Time: 00:01 Attestations NPU Medical Necessity Statement*: Inpatient hospitalization is medically necessary and the clinically appropriate intervention, at this time. We will monitor medications and make changes as indicated. Her likely length of stay is 7-10 days. Coding Level of Care Code Acute Code for [facility] Diagnoses Psychosis F29 Hallucinations R44.3 History of bipolar disorder Z86.59
[2023-01-13 20:05] VITALS: BP 149/65; PULSE 104; RESP 16; TEMP 37.1; O2SAT 98
[2023-01-14 06:00] VITALS: BP 125/83; PULSE 113; RESP 17; TEMP 37.1; O2SAT 99; BMI 39.9
[2023-01-14] MEDS: haloperidol inj 5 mg/mL INJ 1 mL IM (11:40)
--- NOTE | 2023-01-14 11:40 | PC.NURSE ---
refused scheduled Abilify, verbal order given from physician to administer IM Haldol, Haldol 5 mg given IM in right deltoid. staff attempts to educate patient several times about the importance of taking medication as prescribed. patient tolerated injection well, but was tearful during administration. ice water taken to patient per her request after injection
--- NOTE | 2023-01-14 13:53 | P.NPUPN_ITS ---
Subjective NPU Subjective: The patient is a 22-year-old white female admitted with manic symptoms including active psychosis and paranoia with a history of noncompliance with her medications. The patient had refused her oral Abilify last night. She had reportedly had taken Abilify Maintena on 01/12/2023. She had continue to isolate herself and stated that she had remained upset. She had remained accusatory of staff and stated that her mother was here on the unit disguised as a nurse. She had stated that she had continued to feel that her family and friends were stealing things from her in her home. She had repeatedly stated that she did not have any problems at this time. Patient endorsed that she had felt that her food at home had been poisoned. Mental Status Exam MSE Comments: This is an obese versus morbidly obese white female in hospital scrubs with limited grooming and eye contact. No abnormal movements except for psychomotor retardation. She was cooperative with exam in sign this ificant distress. Speech was productive with normal rate and normal volume. Mood described as okay. Affect was mood incongruent and irritable. Thought process was superficial and linear. Thought content: Patient did not report any suicidal or homicidal ideation, there were bizarre delusions noted with capgrass appreciated along with paranoia. His attention and concentration were limited and memory was unreliable but none were formally tested. She is alert and oriented times person and place. Insight, judgment and impulse control are impaired. Vitals/I&O/Wt Last Vital Signs Temp 98.8 F 01/14/23 06:00 Pulse 113 H 01/14/23 06:00 Resp 17 01/14/23 06:00 BP 125/83 01/14/23 06:00 Pulse Ox 99 01/14/23 06:00 O2 Del Method Room Air 01/14/23 06:00 Weight last 48 hrs Weight 115.666 kg Data NPU 01/07/23 16:44 01/07/23 16:44 A&P Assessment and plan (1) Psychosis: (2) Hallucinations: (3) History of bipolar disorder: Plan This is a 22-year-old white female with some previous mental health history reported including possible bipolar disorder but presenting frankly psychotic with a negative UDS. 1. Reports of previous exposure to Abilify but with significant nonadherence. 2. Get collateral information given patient very poor historian. 3. IF patient refuses abilify, Haldol will be given IM 5mg at night. Abilify Maintena 400 mg IM was given after court hearing 01/12/2023. 4. Encourage individual, group, and milieu therapy. 5. Continue q-15-minute checks for safety. 6. Recommend sober living treatment at the highest level of care to which the patient is willing to commit as we explore whether there is any occult drug use. 7. 21 day hold hearing today and she was placed on a 21-day hold 01/12/2023. Involuntary Hold Information 96 Hour Hold: 96 Hour Involuntary Admission: Yes 96 Hour Hold Ending Date: 01/12/23 96 Hour Hold Ending Time: 00:01 Attestations NPU Medical Necessity Statement*: Inpatient hospitalization is medically necessary and the clinically appropriate intervention, at this time. We will monitor medications and make changes as indicated. Her likely length of stay is 7-10 days. Coding Level of Care Code Acute Code for [facility] Fw Diagnoses Psychosis F29 Hallucinations R44.3 History of bipolar disorder Z86.59
[2023-01-14 14:00] VITALS: BP 126/79; PULSE 89; RESP 17; TEMP 36.8; O2SAT 99
[2023-01-14 19:49] VITALS: BP 123/83; PULSE 100; RESP 15; TEMP 37.1; O2SAT 99
[2023-01-15 06:00] VITALS: BP 128/83; PULSE 98; RESP 14; TEMP 36.8; O2SAT 96
[2023-01-15] MEDS: ARIPiprazole 10 mg Tablet PO (08:45)
[2023-01-15] MEDS: calcium carbonate 500 mg Chew Tablet PO (09:35)
--- NOTE | 2023-01-15 09:35 | PC.NURSE ---
PRN TUMS 500 MG CHEWABLE GIVEN PO PER PT C/O HEARTBURN
[2023-01-15 14:00] VITALS: BP 124/86; PULSE 102; RESP 16; TEMP 36.8; O2SAT 97
--- NOTE | 2023-01-15 14:58 | W.PM.NPUPNS ---
Subjective NPU Subjective: The patient is a 22-year-old white female admitted with manic symptoms including active psychosis and paranoia with a history of noncompliance with her medications. The patient continued to report that nurses here had been Doppelgangers of her family members. She had continued to endorse that her mother had been here on the unit disguised as a nurse. She had continued to isolate herself on the milieu. She continued to consume food that was only in a package as she had expressed paranoia that her food had been poisoned. 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 She continued to report that she was having no problems and did not know why she was here. Mental Status Exam MSE Comments: This is an obese versus morbidly obese white female in hospital scrubs with limited grooming and eye contact. No abnormal movements except for psychomotor retardation. She was cooperative with exam and appeared in mild to moderate distress. Speech was productive with normal rate and normal volume. Mood described as okay. Affect was odd and subdued. Thought process was superficial and linear. Thought content: Patient did not report any suicidal or homicidal ideation, there were bizarre delusions noted with CAPGRAS appreciated along with paranoia. His attention and concentration were limited and memory was unreliable but none were formally tested. She is alert and oriented times person and place. Insight, judgment and impulse control are impaired. Vitals/I&O/Wt Last Vital Signs Temp 98.3 F 01/15/23 06:00 Pulse 98 01/15/23 06:00 Resp 14 01/15/23 06:00 BP 128/83 01/15/23 06:00 Pulse Ox 96 01/15/23 06:00 O2 Del Method Room Air 01/15/23 06:00 Weight last 48 hrs Weight 115.666 kg Data NPU 01/07/23 16:44 01/07/23 16:44 A&P Assessment and plan (1) Psychosis: (2) Hallucinations: (3) History of bipolar disorder: Plan This is a 22-year-old white female with some previous mental health history reported including possible bipolar disorder but presenting frankly psychotic with a negative UDS. 1. Patient appears minimally improved, will increase Abilify oral to 15mg daily with haldol 5mg to be given if refused. 2. Get collateral information given patient very poor historian. 3. Abilify Maintena 400 mg IM was given after court hearing 01/12/2023. 4. Encourage individual, group, and milieu therapy. 5. Continue q-15-minute checks for safety. 6. Recommend sober living treatment at the highest level of care to which the patient is willing to commit as we explore whether there is any occult drug use. 7. 21 day hold hearing today and she was placed on a 21-day hold 01/12/2023. Involuntary Hold Information 96 Hour Hold: 96 Hour Involuntary Admission: Yes 96 Hour Hold Ending Date: 01/12/23 96 Hour Hold Ending Time: 00:01 Attestations NPU Medical Necessity Statement*: Inpatient hospitalization is medically necessary and the clinically appropriate intervention, at this time. We will monitor medications and make changes as indicated. Her likely length of stay is 7-10 days. Coding Level of Care Code Acute Code for [facility] Fwd Diagnoses Psychosis F29 Hallucinations R44.3 History of bipolar disorder Z86.59
[2023-01-15] MEDS: acetaminophen 325 mg Tablet 650 MG PO ×2 (18:20→21:22)
[2023-01-15 19:56] VITALS: BP 117/85; PULSE 101; RESP 18; TEMP 36.9; O2SAT 99
[2023-01-15 20:19] LABS: Add Urine Microscopic? YES; Bilirubin Urine 1+ (Negative); Blood Urine 2+ (Negative); Glucose Urine UA Trace (Normal); Ketones Urine 1+ (Negative); Leukocyte Esterase Urine 2+ (Negative); Nitrate Urine Negative (Negative); Protein Urine 2+ (Negative); Urine Appearance Cloudy (CLEAR); Urine Color Yellow (Yellow); Urobilinogen Urine 4 mg/dL (Negative); pH Urine 5 (5-7)
[2023-01-15 20:20] LABS: Add Urine Culture? Yes; Bacteria Urine 2+ /hpf; Mucus Urine 2+ /hpf; Trichomonas Urine 2+ /hpf; WBC Urine 15-25 /hpf (0-5)
--- NOTE | 2023-01-15 20:32 | PC.NURSE ---
Pt urinalysis completed, pt informed of results. Pt teaching included increasing PO fluid intake. NO received and noted for CBC, check for elevated WBC. Awaiting lab arrival for draw.
--- NOTE | 2023-01-15 21:10 | PC.NURSE ---
Lab here to draw pt blood for lab work. Pt tolerated procedure well.
[2023-01-15 21:17] LABS: Basophils # 0.1 10^3/uL (0.0-0.1); Basophils % 0.8 %; Eosinophils # 0.1 10^3/uL (0.0-0.8); Eosinophils % 0.7 %; Hematocrit 46.9 % (36-47); Lymphocytes # 2.4 10^3/uL (0.8-4.8); Lymphocytes % 26.6 %; Mean Corpuscular HGB Conc 34.8 g/dL (30-55); Mean Corpuscular Hemoglobin 28.9 pg (27-33); Mean Corpuscular Volume 83.2 fl (85-98); Mean Platelet Volume 11.3 fL (7.4-10.4); Monocytes # 0.8 10^3/uL (0.2-0.9); Monocytes % 9.1 %; Neutrophils # 5.72 10^3/uL (1.8-7.7); Neutrophils % 62.6 %; Nucleated Red Blood Cells % 0 %; Platelet Count 308 10^3/cmm (157-399); Red Blood Count 5.64 10^6/uL (3.85-5.65); Red Cell Distribution Width 11.9 % (12.1-15.1); White Blood Count 9.13 10^3/uL (3.29-11.43)
[2023-01-16 06:00] VITALS: BP 122/82; PULSE 118; RESP 16; TEMP 36.6; O2SAT 100
[2023-01-16] MEDS: ARIPiprazole 10 mg Tablet PO (08:07)
[2023-01-16] MEDS: neomycin-poly-bacitracin oint 28 gm 1 APPLIC TOPICAL ×2 (08:14→16:59)
[2023-01-16] MEDS: acetaminophen 325 mg Tablet 650 MG PO ×3 (11:30→19:28)
[2023-01-16 13:17] VITALS: BP 116/79; PULSE 102; RESP 16; TEMP 36.7; O2SAT 95
[2023-01-16] MEDS: ibuprofen 600 mg Tablet PO ×2 (13:36→21:27)
[2023-01-16] MEDS: sulfamethoxazole-trimeth DS 160-800 mg Tablet 1 TAB PO (17:03)
--- NOTE | 2023-01-16 17:52 | W.PM.NPUPNS ---
Subjective NPU Subjective: The patient is a 22-year-old white female admitted with manic symptoms including active psychosis and paranoia with a history of noncompliance with her medications. Patient had complained of ear pains bilaterally and also reported some burning on urination. She had appeared more willing to consume beverages and food that had not been packaged and did not report overt paranoia. She had still remained suspicious about others intent and still requested being able to go home. She did not discuss having family members that were impostors here on the unit today. She had reported having made contact with her sister who she had previously accused of being involved in a plot against her. Mental Status Exam MSE Comments: This is an obese versus morbidly obese white female in hospital scrubs with limited grooming and eye contact. No abnormal movements except for psychomotor retardation. She was cooperative with exam and appeared in mild to moderate distress. Speech was productive with normal rate and normal volume. Mood described as frustrated. Affect was blunted. Thought process was more linear. Thought content: Patient did not report any suicidal or homicidal ideation, There was paranoia but no over delusions. His attention and concentration were limited and memory was unreliable but none were formally tested. She is alert and oriented times person and place. Insight, judgment and impulse control are poor. Vitals/I&O/Wt Last Vital Signs Temp 98.1 F 01/16/23 13:17 Pulse 102 H 01/16/23 13:17 Resp 16 01/16/23 13:17 BP 116/79 01/16/23 13:17 Pulse Ox 95 01/16/23 13:17 O2 Del Method Room Air 01/16/23 06:00 Data NPU 01/15/23 21:08 01/07/23 16:44 A&P Assessment and plan (1) Psychosis: (2) Hallucinations: (3) History of bipolar disorder: Plan This is a 22-year-old white female with some previous mental health history reported including possible bipolar disorder but presenting frankly psychotic with a negative UDS. 1. Increase abilify to 15mg daily. 2. Get collateral information given patient very poor historian. 3. Abilify Maintena 400 mg IM was given after court hearing 01/12/2023. 4. Encourage individual, group, and milieu therapy. 5. Continue q-15-minute checks for safety. 6. Recommend sober living treatment at the highest level of care to which the patient is willing to commit as we explore whether there is any occult drug use. 7. Patient placed on a 21-day hold 01/12/2023. Involuntary Hold Information 96 Hour Hold: 96 Hour Involuntary Admission: Yes 96 Hour Hold Ending Date: 01/12/23 96 Hour Hold Ending Time: 00:01 Attestations NPU Medical Necessity Statement*: Inpatient hospitalization is medically necessary and the clinically appropriate intervention, at this time. We will monitor medications and make changes as indicated. Her likely length of stay is 7-10 days. Coding Level of Care Code Acute Code for [facility] Fwd Diagnoses Psychosis F29 Hallucinations R44.3 History of bipolar disorder Z86.59
[2023-01-16 20:00] VITALS: BP 120/77; PULSE 89; RESP 16; TEMP 36.9; O2SAT 98
[2023-01-17 06:00] VITALS: PULSE 129; RESP 18; TEMP 36.9; O2SAT 97
[2023-01-17] MEDS: polyethylene glycol 3350 Pkt 17 gm PO (06:46)
[2023-01-17] MEDS: ibuprofen 600 mg Tablet PO ×3 (06:46→20:28)
[2023-01-17] MEDS: ARIPiprazole 10 mg Tablet 15 MG PO (08:24)
[2023-01-17] MEDS: sulfamethoxazole-trimeth DS 160-800 mg Tablet 1 TAB PO ×2 (08:24→17:09)
[2023-01-17] MEDS: acetaminophen 325 mg Tablet 650 MG PO ×2 (10:08→16:54)
[2023-01-17 14:00] VITALS: BP 119/83; PULSE 89; RESP 16; TEMP 37.5; O2SAT 96
[2023-01-17] MEDS: calcium carbonate 500 mg Chew Tablet PO ×2 (15:21→21:09)
--- NOTE | 2023-01-17 16:59 | P.NPUPN_ITS ---
Subjective NPU Subjective: The patient is a 22-year-old white female admitted with manic symptoms including active psychosis and paranoia with a history of noncompliance with her medications. The patient had reported feeling better. She had expressed a great deal of anxiety about having her child live with patient's child's father. She reported no side effects from her medication. She had appeared to attend groups and was more compliant with no reports of having impostors and having her family secretly dressed as nurses here. She had also reported no complications from eating or drinking food that was not packaged and as she had stated that she felt okay with this plan. She reported no suicidal thoughts. She reported improved concentration and stated that she would like to go home to her mother. Mental Status Exam MSE Comments: This is an obese versus morbidly obese white female in hospital scrubs with improved grooming and good eye contact. No abnormal movements except for psychomotor retardation. She was cooperative with exam and appeared in mild distress. Speech was productive with normal rate and normal volume. Mood described as better. Her affect did appear less restricted today. Thought process was more linear. Thought content: Patient did not report any suicidal or homicidal ideation, there was significant reduction in her paranoia with no clear evidence of delusions today. Herattention and concentration were limited and memory was grossly intact. She is alert and oriented times person and place. Insight was improving. Her judgment was improving. Her impulse control appeared to be adequate. Vitals/I&O/Wt Last Vital Signs Temp 99.5 F 01/17/23 14:00 Pulse 89 01/17/23 14:00 Resp 16 01/17/23 14:00 BP 119/83 01/17/23 14:00 Pulse Ox 96 01/17/23 14:00 O2 Del Method Room Air 01/17/23 14:00 Data NPU 01/15/23 21:08 01/07/23 16:44 Micro: Microbiology 01/15/23 19:59 Urine Culture - Final Urine,Clean Catch Microbiology 01/15/23 19:59 Urine,Clean Catch Urine Culture - Final A&P Assessment and plan (1) Psychosis: (2) Hallucinations: (3) History of bipolar disorder: Plan This is a 22-year-old white female with some previous mental health history reported including possible bipolar disorder but presenting frankly psychotic with a negative UDS. 1. Continue abilify to 15mg daily. Patient showing great improvement on this regimen over last 4 days. 2. Get collateral information given patient very poor historian. 3. Abilify Maintena 400 mg IM was given after court hearing 01/12/2023. 4. Encourage individual, group, and milieu therapy. 5. Continue q-15-minute checks for safety. 6. Recommend sober living treatment at the highest level of care to which the patient is willing to commit as we explore whether there is any occult drug use. 7. Patient placed on a 21-day hold 01/12/2023. Involuntary Hold Information 96 Hour Hold: 96 Hour Involuntary Admission: Yes 96 Hour Hold Ending Date: 01/12/23 96 Hour Hold Ending Time: 00:01 Attestations NPU Medical Necessity Statement*: Inpatient hospitalization is medically necessary and the clinically appropriate intervention, at this time. We will monitor medications and make changes as indicated. Her likely length of stay is 1-2 days. Coding Level of Care Code Acute Code for [facility] Fw Diagnoses Psychosis F29 Hallucinations R44.3 History of bipolar disorder Z86.59
[2023-01-17 20:37] VITALS: BP 121/75; PULSE 114; RESP 16; TEMP 37.2; O2SAT 98
[2023-01-18 06:00] VITALS: BP 146/82; PULSE 90; RESP 16; TEMP 36.8; O2SAT 97
[2023-01-18] MEDS: calcium carbonate 500 mg Chew Tablet PO (06:05)
[2023-01-18] MEDS: acetaminophen 325 mg Tablet 650 MG PO ×2 (08:23→13:25)
[2023-01-18] MEDS: ARIPiprazole 10 mg Tablet 15 MG PO (08:23)
[2023-01-18] MEDS: sulfamethoxazole-trimeth DS 160-800 mg Tablet 1 TAB PO (08:24)
--- NOTE | 2023-01-18 08:59 | PC.NURSE ---
During mornign assessment, patient denies Si, HI, AVH, depression, and anxiety. Patient in relatively good spirits during assessment, smiling. Patient had questions about getting to see her daughter after being released. Patient took morning medications with no issues.
[2023-01-18] MEDS: ibuprofen 600 mg Tablet PO (10:01)
--- NOTE | 2023-01-18 14:22 | W.PM.NPUDCS ---
Diagnoses at Discharge Discharge Diagnosis (1) Psychosis: Status: Acute (2) Hallucinations: Status: Acute (3) History of bipolar disorder: Status: Acute Reason for Visit Reason for Visit: PSYCH EVAL Brief History: History of Present Illness Shawna Godfrey is a 22 year old female who presented to the emergency department with the following report: Chief Complaint: Psychiatric Symptoms Stated Complaint: PSYCH EVAL Time Seen by Provider: 01/07/23 16:05 Source: patient Mode of arrival: ambulatory Limitations: no limitations History of Present Illness:?? 22-year-old female who is here with EMS.? She has a history of bipolar she has not taken her meds since May family called police because patient's been extremely paranoid she thinks that someone is coming into her house and taking items and replacing with other items.? She also thinks that people mid-peaking in her windows.? Patient is extremely paranoid here with pressured speech and appears manic. ? Associated symptoms: Reports delusions and depression. She was admitted to the neuropsychiatric unit for definitive treatment of those issues.? She presented today quite distraught.? I offered to take her out on the patio for privacy and that led to almost panic as she was not willing to walk out the door.? She asked why I was trying to get her on the helicopter and when I asked what was meant by that she was frustrated that I was denying that there was a helicopter.? I explained to her that certainly helicopters come to and from the hospital on a regular basis but there were no helicopters in the near facility but she was not hearing that.? She was very upset as she argued that she had not had vitals in the last 2 hours and needed to be taken down to the emergency department but could not articulate what the actual issue was.? She said that she has a fever and her blood pressure is elevated which is not true and she had just had vitals in the last couple hours which she argued against.? Her mother had come for visitation and she refused to see her mother but after our interaction she seemed like she might give her mother an option to see her.? We discussed the risks, benefits and alternatives of exploring an antipsychotic and she appeared to understand but would not agree to either discussed medication she had been on or considering a medication today.? We discussed the fact she is on a 96-hour hold and hoping we can work together to initiate medication to avoid that hold needing to be extended given her request to get out of here.? She would not provide any additional information and we discussed us reaching out to the family to get collateral information. Hospital Course Hospital Course During the hospitalization, the patient had routine laboratory studies which were within normal limits except for a few outliers.? Additionally, there was a general medical evaluation which was also within normal limits and revealed no new acute processes.? At the time of discharge, lethality was denied and psychosis was resolving.? Mood and anxiety were well managed.? The patient endorsed a plan to avoid all drugs of abuse and follow up with the aftercare recommendations of the treatment team.? The patient was evaluated and deemed to be absent credible lethality and had achieved the maximum benefit from an inpatient hospitalization, and so was discharged.? The patient had been initiated on Abilify Maintena on 01/12/2023 after she had been placed on a 21-day hold. 2 days later, patient began to take oral Abilify as well and over the next 5 days showed great improvement with the patient no longer psychotic and denying depression. She had been agreeable to continuing the oral Abilify in place of the Abilify Maintena which would be prescribed and dispensed 1 month after she last had taken her initial dose. Involuntary Hold Information 96 Hour Hold: 96 Hour Involuntary Admission: Yes 96 Hour Hold Ending Date: 01/12/23 96 Hour Hold Ending Time: 00:01 Mental Status Exam MSE Comments: This is an obese versus morbidly obese white female in hospital scrubs with improved grooming and good eye contact. No abnormal movements other than mild psychomotor retardation. She was cooperative with exam and appeared in no acute distress. Speech was productive with normal rate and normal volume. Mood described as better. Her affect appeared brighter. Thought process was more linear. Thought content: Patient did not report any suicidal or homicidal ideation. There was no evidence of paranoia. Her attention and concentration appeared improved. She is alert and oriented times person and place. Insight was improving. Her judgment was improving. Her impulse control appeared to be fair on discharge. Discharge Data Studies Completed and Pending: Laboratory Results WBC 9.13 10^3/uL (3.2 9-11.43) 01/15/23 21:08 RBC 5.64 10^6/uL (3.8 5-5.65) 01/15/23 21:08 Hgb 16.30 g/dL (11.27 -16.99) 01/15/23 21:08 Hct 46.9 % (36-47) 01/15/23 21:08 MCV 83.2 fl (85-98) L 01/15/23 21:08 MCH 28.9 pg (27-33) 01/15/23 21:08 MCHC 34.8 g/dL (30-55) 01/15/23 21:08 RDW 11.9 % (12.1-15.1 ) L 01/15/23 21:08 Plt Count 308 10^3/cmm (157 -399) 01/15/23 21:08 MPV 11.3 fL (7.4-10.4 ) H 01/15/23 21:08 Neut % (Auto) 62.6 % 01/15/23 21:08 Lymph % (Auto) 26.6 % 01/15/23 21:08 P[place] % (Auto) 9.1 % 01/15/23 21:08 Eos % (Auto) 0.7 % 01/15/23 21:08 Baso % (Auto) 0.8 % 01/15/23 21:08 Neut # (Auto) 5.72 10^3/uL (1.8 -7.7) 01/15/23 21:08 Lymph # (Auto) 2.4 10^3/uL (0.8- 4.8) 01/15/23 21:08 Pinal # (Auto) 0.8 10^3/uL (0.2- 0.9) 01/15/23 21:08 Eos # (Auto) 0.1 10^3/uL (0.0- 0.8) 01/15/23 21:08 Baso # (Auto) 0.1 10^3/uL (0.0- 0.1) 01/15/23 21:08 Nucleated RBC % (a uto) 0 % 01/15/23 21:08 Nucleated RBCs # 0.0 /100WBC 01/15/23 21:08 Sodium 142 mmol/L (136-1 45) 01/07/23 16:44 Potassium 3.3 mmol/L (3.5-5 .1) L 01/07/23 16:44 Chloride 106 mmol/L (98-10 7) 01/07/23 16:44 Carbon Dioxide 22 mmol/L (22-29) 01/07/23 16:44 Anion Gap 17.3 (5-19) 01/07/23 16:44 BUN 5 mg/dL (6-20) L 01/07/23 16:44 Creatinine 0.6 mg/dL (0.5-0. 9) 01/07/23 16:44 GFR Calculation 122.8 mL/min (90- 130) 01/07/23 16:44 Glucose 110 mg/dL (65-115 ) 01/07/23 16:44 Calculated Osmolal ity 292 mOsm/kg (285- 295) 01/07/23 16:44 Calcium 8.9 mg/dL (8.5-10 .5) 01/07/23 16:44 Total Bilirubin 0.3 mg/dL (0.15-1 .2) 01/07/23 16:44 AST 18 U/L (0-32) 01/07/23 16:44 ALT 14 U/L (0-33) 01/07/23 16:44 Alkaline Phosphata se 87 U/L (35-105) 01/07/23 16:44 Total Protein 7.4 g/dL (6.6-8.7 ) 01/07/23 16:44 Albumin 4.2 g/dL (3.5-5.2 ) 01/07/23 16:44 Globulin 3.2 g/dL (1.3-4.6 ) 01/07/23 16:44 HCG, Qual Negative (Negati ve) 01/07/23 16:40 Urine Color Yellow (Yellow) 01/15/23 19:59 Urine Appearance Cloudy (CLEAR) A 01/15/23 19:59 Urine pH 5 (5-7) 01/15/23 19:59 Ur Specific Gravit y 1.030 (1.005-1.0 30) 01/15/23 19:59 Urine Protein 2+ (Negative) H 01/15/23 19:59 Urine Glucose (UA) Trace (Normal) H 01/15/23 19:59 Urine Ketones 1+ (Negative) H 01/15/23 19:59 Urine Blood 2+ (Negative) H 01/15/23 19:59 Urine Nitrate Negative (Negati ve) 01/15/23 19:59 Urine Bilirubin 1+ (Negative) H 01/15/23 19:59 Urine Urobilinogen 4 mg/dL (Negative ) H 01/15/23 19:59 Ur Leukocyte Nhung ase 2+ (Negative) H 01/15/23 19:59 Urine RBC 10-15 /hpf (0-2) H 01/15/23 19:59 Urine WBC 15-25 /hpf (0-5) H 01/15/23 19:59 Ur Squamous Epith Cells 5-10 /hpf (0-5) H 01/15/23 19:59 Amorphous Sediment Not Reportable 01/15/23 19:59 Urine Bacteria 2+ /hpf (NONE) H 01/15/23 19:59 Urine Mucus 2+ /hpf 01/15/23 19:59 Urine Trichomonas 2+ /hpf H 01/15/23 19:59 Salicylates < 0.3 mg/dL (3-10 ) L 01/07/23 16:44 Urine Opiates Scre en Negative ng/mL (N egative) 01/07/23 16:40 Acetaminophen 9.6 ug/mL (10-30) L 01/07/23 16:44 Ur Barbiturates Sc reen Negative ng/mL (N egative) 01/07/23 16:40 Ur Phencyclidine S crn Negative ng/mL (N egative) 01/07/23 16:40 Ur Amphetamines Sc reen Negative ng/mL (N egative) 01/07/23 16:40 U Benzodiazepines Scrn Negative ng/mL (N egative) 01/07/23 16:40 Urine Cocaine Scre en Negative ng/mL (N egative) 01/07/23 16:40 U Marijuana (THC) Screen Negative ng/mL (N egative) 01/07/23 16:40 Ethyl Alcohol < 10 mg/dL (0-10) 01/07/23 16:44 C.trachomatis RNA (TMA) Detected (NOT DE TECTED) A 01/11/23 11:29 Chlamydia/GC Comme nt See note 01/11/23 11:29 N.gonorrhoeae RNA (TMA) Not detected (NO T DETECTED) 01/11/23 11:29 Vitals: Last Vital Signs Temp 98.2 F 01/18/23 06:00 Pulse 90 01/18/23 06:00 Resp 16 01/18/23 06:00 BP 146/82 01/18/23 06:00 Pulse Ox 97 01/18/23 06:00 O2 Del Method Room Air 01/18/23 06:00 Discharge Plan Discharge Patient Disposition: Home Condition: Stable Prescriptions: New aripiprazole 10 mg Tablet 15 mg PO DAILY 30 Days Qty: 45 1RF sulfamethoxazole-trimethoprim 800-160 mg Tablet 1 tab PO BID Qty: 12 0RF Discharge Orders: Discharge Order (Routine); Ordered 01/18/23 Ordered By: Fan Rodas Referrals: [facility] [Other] - 4-7 days (Based on in-come. ) [facility] [Outside] - 01/25/23 10:15 am (Initial appointment scheduled for 01/25/23 @ 10:15 am.) Rell Ferrari MD [Primary Care Provider] - Discharge Diet: Usual diet Discharge Activity: Resume usual activity Patient Instructions: Sulfamethoxazole/Trimethoprim (By mouth) (Bactrim, Bactrim DS,..., Aripiprazole (By mouth), Bipolar Disorder (DC), Psychotic Disorder (DC), Opioid Safety Discharge Attestations NPU Time Spent in Discharge Care*: less than 30 min Specific Discharge Activities: Specific discharge activities: educating patient and documenting/other paperwork Coding Level of Care Code Acute Chg FW DC note Diagnoses Psychosis F29 Hallucinations R44.3 History of bipolar disorder Z86.59
[2023-01-18 14:32] VITALS: BP 146/82; PULSE 90; RESP 16; TEMP 36.8; O2SAT 97
== END 2023-01-18 15:45 | disposition home or self-care (01) | DRG 885 ==
LOC: ER 16:45 → NP 17:19
PROVIDERS: Admitting Provider Psychiatry & Neurology Psychiatry; Emergency Provider Emergency Medicine; PCP Family Medicine; Visit Provider Psychiatry & Neurology Psychiatry
DX: F23 Brief psychotic disorder (principal); Z91.148 Patient's other noncompliance with medication regimen for other reason; F22 Delusional disorders; Z86.59 Personal history of other mental and behavioral disorders
CPT/HCPCS: 36415; 80053; 80306; 80307; 81001; 84703; 85025; 87086; 87491; 87591; 96372; 97150; 97165; 99285; J1200; J1630; J2060; Q0144

== ENCOUNTER 2023-02-11 22:19 | Emergency (ER) | payer BC, MEDICAID, SELFPAY ==
--- NOTE | 2023-02-11 22:54 | PC.NURSE ---
PT was checked in by family prior to the pt being inside the building. pts family was informed that we would not physically make the pt come inside the building, pts family was informed to call the police dept to help intervene.
[2023-02-11 23:10] VITALS: BP 153/104; PULSE 104; RESP 16; TEMP 36.8; O2SAT 96; BMI 38.7
[2023-02-11] MEDS: LORazepam 2 mg/mL INJ 1 mL IM (23:50)
[2023-02-11] MEDS: ziprasidone 20 mg/mL SDV IM (23:51)
[2023-02-11] MEDS: water for injection-sterile 10 ML (23:52)
--- NOTE | 2023-02-12 00:04 | XRR_ITS ---
PROCEDURE INFORMATION: Exam: XR Chest Exam date and time: 02/12/2023 12:19 AM Age: 22 years old Clinical indication: Other: Medical clearance for psych transfer; Patient HX: Medical clearance for psych clearance TECHNIQUE: Imaging protocol: Radiologic exam of the chest. Views: 1 view. COMPARISON: No relevant prior studies available. FINDINGS: Lungs: Unremarkable. No consolidation. Pleural spaces: Unremarkable. No pleural effusion. No pneumothorax. Heart/Mediastinum: Unremarkable. No cardiomegaly. Bones/joints: Unremarkable. XR/XR chest 1V portable [id number] IMPRESSION: No acute findings.
[2023-02-12 00:33] LABS: HCG, Serum Qual Negative (Negative)
[2023-02-12 00:37] LABS: Albumin Level 4.4 g/dL (3.5-5.2); Alkaline Phosphatase 76 U/L (35-105); Calcium 9.5 mg/dL (8.5-10.5); Chloride 105 mmol/L (98-107); Glomerular Filtration Rate 122.8 mL/min (90-130); Osmolality Calculated 286 mOsm/kg (285-295); Sodium 138 mmol/L (136-145); Total Bilirubin 0.7 mg/dL (0.15-1.2); Total Protein 7.4 g/dL (6.6-8.7)
[2023-02-12 00:57] LABS: Thyroid Stimulating Hormone 1.59 uIU/mL (0.27-4.20)
[2023-02-12 00:59] LABS: Acetaminophen < 5.0 ug/mL (10-30); Alcohol Level < 10 mg/dL (0-10); Salicylate < 0.3 mg/dL (3-10)
[2023-02-12 01:09] LABS: Alanine Aminotransferase 16 U/L (0-33); Anion Gap 16.1 (5-19); Aspartate Amino Transferase 16 U/L (0-32); Blood Urea Nitrogen 5 mg/dL (6-20); Carbon Dioxide 22 mmol/L (22-29); Glucose 142 mg/dL (65-115); Potassium 3.1 mmol/L (3.5-5.1)
[2023-02-12 01:17] LABS: Add Urine Microscopic? YES; Bacteria Urine 3+ /hpf; Bilirubin Urine 1+ (Negative); Blood Urine 2+ (Negative); Glucose Urine UA Norm (Normal); Ketones Urine 3+ (Negative); Leukocyte Esterase Urine 2+ (Negative); Nitrate Urine Negative (Negative); Protein Urine Trace (Negative); RBC Urine 0-4 /hpf (0-2); Specific Gravity, Urine 1.025 (1.005-1.030); Squamous Epithelial Cell Urine 25-40 /hpf (0-5); Urine Appearance Cloudy (CLEAR); Urine Color Yellow (Yellow); Urobilinogen Urine 1 mg/dL (Negative); WBC Urine 25-40 /hpf (0-5); pH Urine 5 (5-7)
[2023-02-12 01:18] LABS: Add Urine Culture? No; Amorphous Sediment Urine 2+ /hpf; Amphetamines Screen Urine Negative (Negative); Barbiturates Screen Urine Negative (Negative); Benzodiazepines Screen Urine Negative (Negative); Cocaine Screen Urine Negative (Negative); Mucus Urine 1+ /hpf; Opiate Screen Urine Negative (Negative); PCP Screen Urine Negative (Negative); THC Screen Urine Negative (Negative)
--- NOTE | 2023-02-12 01:31 | W.ED.PSYCHS ---
Documented by User: Hank Walsh, DO 02/12/23 05:49 HPI - Psych General: Chief Complaint: Psychiatric Symptoms Stated Complaint: SI Time Seen by Provider: 02/11/23 23:19 History of Present Illness: 22-year-old female with a history of psychiatric disease. She was discharged from this facility 3 weeks ago following a 10-day stay for psychosis. Family brings her in tonight. They have written affidavits for 96-hour hold. They state that she has made suicidal statements. She is paranoid. She believes that people she sees are her sister. She has nonsensical at times. Currently the patient herself denies suicidal ideation. Associated symptoms: Reports visual hallucinations, delusions and depression Review of Systems Const: Denies: fever(s) Card: Denies: chest pain Resp: Reports: non-productive cough; Denies: dyspnea or productive cough GI: Denies: abdominal pain, nausea or vomiting : Denies: flank pain Musc: Denies: neck pain Psych: Reports: depression, mood swings and visual hallucinations Physical Exam Const: COMMON NORMALS: no acute distress GENERAL APPEARANCE: cooperative; not ill appearing and not frail appearing HENMT: COMMON NORMALS: normocephalic, atraumatic and Normal external nose present HEAD & SCALP: normocephalic and atraumatic FACE & SINUS: normal facial exam and face symmetric NOSE: Normal external nose present Eye: COMMON NORMALS: Equal, round and reactive pupils present and EOMs intact bilaterally PUPIL: Yes Equal, round and reactive pupils present Neck/C-Spine: GENERAL: Yes trachea midline Chest: CHEST: Yes Symmetrical chest wall rise Resp: COMMON NORMALS: normal respiratory effort, No retractions, No use of accessory muscles and clear to auscultation bilaterally AUSCULTATION: clear to auscultation bilaterally Cardio: COMMON NORMALS: regular rate and regular rhythm RATE: regular rate RHYTHM: regular rhythm GI: COMMON NORMALS: Normal to inspection, nondistended, normoactive bowel sounds present Extremity: COMMON NORMALS: no pedal edema Neuro: HARINI COMA SCALE: document GCS findings Harini coma scale eye opening: Spontaneous Harini coma scale verbal response: Orientated [place] coma scale motor response: Obey commands Harini coma scale total score: 15 SENSORY EXAM: Yes extremities (intact) Psych: COMMON NORMALS: speech normal ATTITUDE: Yes calm ACTIVITY/MOTOR BEHAVIOR: No appropriate eye contact and Yes restless SPEECH: Yes normal speech MOOD & AFFECT: Yes Flat affect present THOUGHT PROCESS: Circumstantial thought process present THOUGHT CONTENT: Yes delusions ATTENTION/CONCENTRATION: Yes attention grossly intact and Yes concentration grossly impaired Skin: COMMON NORMALS: no rashes or lesions noted GENERAL SKIN EXAM: no rashes or lesions noted Course Vital Signs: Vital signs: Vital Signs Temperature 98.2 F 02/11/23 23:10 Pulse Rate 101 H 02/12/23 05:58 Respiratory Rate 16 02/12/23 05:58 Blood Pressure 122/86 02/12/23 05:58 Pulse Oximetry 100 02/12/23 05:58 [facility] - Psych Medical Decision Making This patient has a strange affect. She has made strange statements in the ER. Family is concerned, as she has made suicidal statements to them, and has been quite paranoid, and hallucinating. Medically, she appears stable. She is not intoxicated in any way. Urinalysis is contaminated, but she may have a mild urinary tract infection. This will be treated. Currently we have no beds available at our facility. We will attempt psychiatric transfer. No beds have been available at other psychiatric facilities. We will continue to try to transfer. If transfer not available, may have to wait until a bed opens up at our facility later today hopefully. Lab Data 02/12/23 01:22 02/12/23 00:00 Radiology Impressions Chest X-Ray 02/12/23 00:04 IMPRESSION: No acute findings. Laboratory Results WBC 8.00 10^3/uL (3.29-11.43) 02/12/23 01:22 Corrected WBC Cancelled 02/12/23 00:00 RBC 4.52 10^6/uL (3.85-5.65) 02/12/23 01:22 Hgb 13.30 g/dL (11.27-16.99) 02/12/23 01:22 Hct 38.7 % (36-47) 02/12/23 01:22 MCV 85.6 fl (85-98) 02/12/23 01:22 MCH 29.4 pg (27-33) 02/12/23 01: MCHC 34.4 g/dL (30-55) 02/12/23 01:22 RDW 13.1 % (12.1-15.1) 02/12/23 01:22 Plt Count 226 10^3/cmm (157-399) 02/12/23 01:22 MPV 10.6 fL (7.4-10.4) H 02/12/23 01:22 Gran % Cancelled 02/12/23 00:00 Neut % (Auto) 68.9 % 02/12/23 01:22 Lymph % (Auto) 20.4 % 02/12/23 01:22 [place] % (Auto) 9.4 % 02/12/23 01:22 Eos % (Auto) 0.1 % 02/12/23 01:22 Baso % (Auto) 1.1 % 02/12/23 01:22 Neut # (Auto) 5.51 10^3/uL (1.8-7.7) 02/12/23 01:22 Lymph # (Auto) 1.6 10^3/uL (0.8-4.8) 02/12/23 01:22 [place] # (Auto) 0.8 10^3/uL (0.2-0.9) 02/12/23 01:22 Eos # (Auto) 0.0 10^3/uL (0.0-0.8) 02/12/23 01:22 Baso # (Auto) 0.1 10^3/uL (0.0-0.1) 02/12/23 01:22 Absolute Gran (auto) Cancelled 02/12/23 00:00 Nucleated RBC % (auto) 0 % 02/12/23 01:22 Nucleated RBCs # 0.0 /100WBC 02/12/23 01:22 Sodium 138 mmol/L (136-145) 02/12/23 00:00 Potassium 3.1 mmol/L (3.5-5.1) L 02/12/23 00:00 Chloride 105 mmol/L (98-107) 02/12/23 00:00 Carbon Dioxide 22 mmol/L (22-29) 02/12/23 00:00 Anion Gap 16.1 (5-19) 02/12/23 00:00 BUN 5 mg/dL (6-20) L 02/12/23 00:00 Creatinine 0.6 mg/dL (0.5-0.9) 02/12/23 00:00 GFR Calculation 122.8 mL/min (90-130) 02/12/23 00:00 Glucose 142 mg/dL (65-115) H 02/12/23 00:00 Calculated Osmolality 286 mOsm/kg (285-295) 02/12/23 00:00 Calcium 9.5 mg/dL (8.5-10.5) 02/12/23 00:00 Total Bilirubin 0.7 mg/dL (0.15-1.2) 02/12/23 00:00 AST 16 U/L (0-32) 02/12/23 00:00 ALT 16 U/L (0-33) 02/12/23 00:00 Alkaline Phosphatase 76 U/L (35-105) 02/12/23 00:00 Total Protein 7.4 g/dL (6.6-8.7) 02/12/23 00:00 Albumin 4.4 g/dL (3.5-5.2) 02/12/23 00:00 Globulin 3.0 g/dL (1.3-4.6) 02/12/23 00:00 TSH 1.59 uIU/mL (0.27-4.20) 02/11/23 23:40 HCG, Qual Cancelled 02/12/23 00:00 HCG, Qual Negative (Negative) 02/12/23 00:00 Urine Color Yellow (Yellow) 02/12/23 00:00 Urine Appearance Cloudy (CLEAR) A 02/12/23 00:00 Urine pH 5 (5-7) 02/12/23 00:00 Ur Specific [place] 1.025 (1.005-1.030) 02/12/23 00:00 Urine Protein Trace (Negative) 02/12/23 00:00 Urine Glucose (UA) Norm (Normal) 02/12/23 00:00 Urine Ketones 3+ (Negative) H 02/12/23 00:00 Urine Blood 2+ (Negative) H 02/12/23 00:00 Urine Nitrate Negative (Negative) 02/12/23 00:00 Urine Bilirubin 1+ (Negative) H 02/12/23 00:00 Urine Urobilinogen 1 mg/dL (Negative) H 02/12/23 00:00 Ur Leukocyte Esterase 2+ (Negative) H 02/12/23 00:00 Urine RBC 0-4 /hpf (0-2) H 02/12/23 00:00 Urine WBC 25-40 /hpf (0-5) H 02/12/23 00:00 Ur Squamous Epith Cells 25-40 /hpf (0-5) H 02/12/23 00:00 Amorphous Sediment 2+ /hpf 02/12/23 00:00 Urine Bacteria 3+ /hpf (NONE) H 02/12/23 00:00 Urine Mucus 1+ /hpf 02/12/23 00:00 Salicylates < 0.3 mg/dL (3-10) L 02/11/23 23:40 Urine Opiates Screen Negative ng/mL (Negative) 02/12/23 00:00 Acetaminophen < 5.0 ug/mL (10-30) L 02/11/23 23:40 Ur Barbiturates Screen Negative ng/mL (Negative) 02/12/23 00:00 Ur Phencyclidine Scrn Negative ng/mL (Negative) 02/12/23 00:00 Ur Amphetamines Screen Negative ng/mL (Negative) 02/12/23 00:00 U Benzodiazepines Scrn Negative ng/mL (Negative) 02/12/23 00:00 Urine Cocaine Screen Negative ng/mL (Negative) 02/12/23 00:00 U Marijuana (THC) Screen Negative ng/mL (Negative) 02/12/23 00:00 Ethyl Alcohol < 10 mg/dL (0-10) 02/11/23 23:40 SARS-CoV-2 Ag (Rapid) negative (Negative) 02/12/23 00:45 No radiology studies performed this visit Discharge Plan Discharge Patient Disposition: Xfer Psychiatric Hosp Clinical Impression: Acute psychosis Condition: Stable Sign Out Sign Out Data: Patient Sign Out occurred on 02/12/23 at 05:57. Patient's care was discussed, and care was transferred from to Stef Michael DO. Coding Level of Care Code ED Supervisor Beet End for Chg Fwd Documented by User: Stef Michael DO 02/12/23 09:21 HPI - Psych General: Chief Complaint: Psychiatric Symptoms Stated Complaint: SI Time Seen by Provider: 02/11/23 23:19 Physical Exam Neuro: HARINI COMA SCALE: document GCS findings Harini coma scale total score: 15 Course Vital Signs: Vital signs: Vital Signs Temperature 98.2 F 02/11/23 23:10 Pulse Rate 101 H 02/12/23 05:58 Respiratory Rate 16 02/12/23 05:58 Blood Pressure 122/86 02/12/23 05:58 Pulse Oximetry 100 02/12/23 05:58 [facility] - Psych Medical Decision Making This patient has a strange affect. She has made strange statements in the ER. Family is concerned, as she has made suicidal statements to them, and has been quite paranoid, and hallucinating. Medically, she appears stable. She is not intoxicated in any way. Urinalysis is contaminated, but she may have a mild urinary tract infection. This will be treated. Currently we have no beds available at our facility. We will attempt psychiatric transfer. No beds have been available at other psychiatric facilities. We will continue to try to transfer. If transfer not available, may have to wait until a bed opens up at our facility later today hopefully. [facility] is excepted patient be transferred by Kaden Olivia. Under Nasrin arrived patient states she wanted to wait here until bed became available in house. We still do not have any beds available and there is no timeframe in which we anticipate having a bed available in our MPU. Discussed with the patient she is on 96-hour hold and will have to transfer her. Patient states she did not want to go. Patient to be given Geodon and Ativan to help with anxiety over the transfer she has not been a behavioral issue to this point. Transfer under 96-hour hold. Medical Records I reviewed the patient's medical records. Lab Data I reviewed the patient's lab results. 02/12/23 01:22 02/12/23 00:00 Radiology Impressions Chest X-Ray 02/12/23 00:04 IMPRESSION: No acute findings. Laboratory Results WBC 8.00 10^3/uL (3.29-11.43) 02/12/23 01:22 Corrected WBC Cancelled 02/12/23 00:00 RBC 4.52 10^6/uL (3.85-5.65) 02/12/23 01:22 Hgb 13.30 g/dL (11.27-16.99) 02/12/23 01:22 Hct 38.7 % (36-47) 02/12/23 01:22 MCV 85.6 fl (85-98) 02/12/23 01:22 MCH 29.4 pg (27-33) 02/12/23 01: MCHC 34.4 g/dL (30-55) 02/12/23 01: RDW 13.1 % (12.1-15.1) 02/12/23 01:22 Plt Count 226 10^3/cmm (157-399) 02/12/23 01:22 MPV 10.6 fL (7.4-10.4) H 02/12/23 01:22 Gran % Cancelled 02/12/23 00:00 Neut % (Auto) 68.9 % 02/12/23 01:22 Lymph % (Auto) 20.4 % 02/12/23 01:22 [place] % (Auto) 9.4 % 02/12/23 01:22 Eos % (Auto) 0.1 % 02/12/23 01:22 Baso % (Auto) 1.1 % 02/12/23 01:22 Neut # (Auto) 5.51 10^3/uL (1.8-7.7) 02/12/23 01:22 Lymph # (Auto) 1.6 10^3/uL (0.8-4.8) 02/12/23 01:22 [place] # (Auto) 0.8 10^3/uL (0.2-0.9) 02/12/23 01:22 Eos # (Auto) 0.0 10^3/uL (0.0-0.8) 02/12/23 01:22 Baso # (Auto) 0.1 10^3/uL (0.0-0.1) 02/12/23 01:22 Absolute Gran (auto) Cancelled 02/12/23 00:00 Nucleated RBC % (auto) 0 % 02/12/23 01:22 Nucleated RBCs # 0.0 /100WBC 02/12/23 01:22 Sodium 138 mmol/L (136-145) 02/12/23 00:00 Potassium 3.1 mmol/L (3.5-5.1) L 02/12/23 00:00 Chloride 105 mmol/L (98-107) 02/12/23 00:00 Carbon Dioxide 22 mmol/L (22-29) 02/12/23 00:00 Anion Gap 16.1 (5-19) 02/12/23 00:00 BUN 5 mg/dL (6-20) L 02/12/23 00:00 Creatinine 0.6 mg/dL (0.5-0.9) 02/12/23 00:00 GFR Calculation 122.8 mL/min (90-130) 02/12/23 00:00 Glucose 142 mg/dL (65-115) H 02/12/23 00:00 Calculated Osmolality 286 mOsm/kg (285-295) 02/12/23 00:00 Calcium 9.5 mg/dL (8.5-10.5) 02/12/23 00:00 Total Bilirubin 0.7 mg/dL (0.15-1.2) 02/12/23 00:00 AST 16 U/L (0-32) 02/12/23 00:00 ALT 16 U/L (0-33) 02/12/23 00:00 Alkaline Phosphatase 76 U/L (35-105) 02/12/23 00:00 Total Protein 7.4 g/dL (6.6-8.7) 02/12/23 00:00 Albumin 4.4 g/dL (3.5-5.2) 02/12/23 00:00 Globulin 3.0 g/dL (1.3-4.6) 02/12/23 00:00 TSH 1.59 uIU/mL (0.27-4.20) 02/11/23 23:40 HCG, Qual Cancelled 02/12/23 00:00 HCG, Qual Negative (Negative) 02/12/23 00:00 Urine Color Yellow (Yellow) 02/12/23 00:00 Urine Appearance Cloudy (CLEAR) A 02/12/23 00:00 Urine pH 5 (5-7) 02/12/23 00:00 Ur Specific [place] 1.025 (1.005-1.030) 02/12/23 00:00 Urine Protein Trace (Negative) 02/12/23 00:00 Urine Glucose (UA) Norm (Normal) 02/12/23 00:00 Urine Ketones 3+ (Negative) H 02/12/23 00:00 Urine Blood 2+ (Negative) H 02/12/23 00:00 Urine Nitrate Negative (Negative) 02/12/23 00:00 Urine Bilirubin 1+ (Negative) H 02/12/23 00:00 Urine Urobilinogen 1 mg/dL (Negative) H 02/12/23 00:00 Ur Leukocyte Esterase 2+ (Negative) H 02/12/23 00:00 Urine RBC 0-4 /hpf (0-2) H 02/12/23 00:00 Urine WBC 25-40 /hpf (0-5) H 02/12/23 00:00 Ur Squamous Epith Cells 25-40 /hpf (0-5) H 02/12/23 00:00 Amorphous Sediment 2+ /hpf 02/12/23 00:00 Urine Bacteria 3+ /hpf (NONE) H 02/12/23 00:00 Urine Mucus 1+ /hpf 02/12/23 00:00 Salicylates < 0.3 mg/dL (3-10) L 02/11/23 23:40 Urine Opiates Screen Negative ng/mL (Negative) 02/12/23 00:00 Acetaminophen < 5.0 ug/mL (10-30) L 02/11/23 23:40 Ur Barbiturates Screen Negative ng/mL (Negative) 02/12/23 00:00 Ur Phencyclidine Scrn Negative ng/mL (Negative) 02/12/23 00:00 Ur Amphetamines Screen Negative ng/mL (Negative) 02/12/23 00:00 U Benzodiazepines Scrn Negative ng/mL (Negative) 02/12/23 00:00 Urine Cocaine Screen Negative ng/mL (Negative) 02/12/23 00:00 U Marijuana (THC) Screen Negative ng/mL (Negative) 02/12/23 00:00 Ethyl Alcohol < 10 mg/dL (0-10) 02/11/23 23:40 SARS-CoV-2 Ag (Rapid) negative (Negative) 02/12/23 00:45 Discharge Plan Discharge Patient Disposition: Xfer Psychiatric Hosp Clinical Impression: Acute psychosis Condition: Stable Sign Out Sign Out Data: Patient Sign Out occurred on 02/12/23 at 05:57. Patient's care was discussed, and care was transferred from to Stef Michael DO. Coding Level of Care Code ED Supervisor Beet End for Chg Fwd
[2023-02-12 01:32] LABS: SARS Covid-2 Antigen negative (Negative)
[2023-02-12 01:32] LABS: Basophils # 0.1 10^3/uL (0.0-0.1); Basophils % 1.1 %; Eosinophils % 0.1 %; Hematocrit 38.7 % (36-47); Lymphocytes # 1.6 10^3/uL (0.8-4.8); Lymphocytes % 20.4 %; Mean Corpuscular HGB Conc 34.4 g/dL (30-55); Mean Corpuscular Hemoglobin 29.4 pg (27-33); Mean Corpuscular Volume 85.6 fl (85-98); Mean Platelet Volume 10.6 fL (7.4-10.4); Monocytes # 0.8 10^3/uL (0.2-0.9); Monocytes % 9.4 %; Neutrophils # 5.51 10^3/uL (1.8-7.7); Neutrophils % 68.9 %; Nucleated Red Blood Cells % 0 %; Platelet Count 226 10^3/cmm (157-399); Red Blood Count 4.52 10^6/uL (3.85-5.65); Red Cell Distribution Width 13.1 % (12.1-15.1)
--- NOTE | 2023-02-12 02:43 | PC.NURSE ---
Info faxed to [facility] in [place], [place] reference #[id number]
--- NOTE | 2023-02-12 04:52 | PC.NURSE ---
Pt registered as SI by family @ 2214 due to pt refusing to enter facility to seek treatment. Family educated that we can not force pt into facility to be seen by provider with family/friend affidavits. Pt must come willingly or with prior 96 Hour Hold. [employer] contacted in regards to potential SI pt on [facility] property refusing to seek evaluation. [employer] responded @ [id number]. Pt redirected by police, family and this RN. Pt agreed to be seen @ 2305, escorted to ER Room 7. Pt placed under 96 Hold Hold @ [id number]. Pt remained in directed view of security for duration of [id number] time.
[2023-02-12 05:58] VITALS: BP 122/86; PULSE 101; RESP 16; O2SAT 100
[2023-02-12] MEDS: potassium chloride oral liq 20 mEq/15 mL UDC 40 MEQ PO (06:15)
[2023-02-12] MEDS: water for injection-sterile 10 ML (09:22)
[2023-02-12] MEDS: ziprasidone 20 mg/mL SDV 10 MG IM (09:22)
[2023-02-12] MEDS: LORazepam 2 mg/mL INJ 1 mL IM (09:23)
== END 2023-02-12 09:46 ==
PROVIDERS: Emergency Medicine; Emergency Provider Family Medicine
DX: F23 Brief psychotic disorder (principal); Z11.52 Encounter for screening for COVID-19
CPT/HCPCS: 36415; 71045; 80053; 80306; 80307; 81001; 84443; 84703; 85025; 87426; 96372; 99285; J2060; J3486

== ENCOUNTER → 2023-04-24 10:58 | Outpatient (BNVA) | payer BC, SELFPAY | PROVIDERS: Visit Provider Nurse Practitioner | DX: Z79.899 Other long term (current) drug therapy (principal) | CPT/HCPCS: 80061; 83036 ==